=== PATIENT | female | born 1950 | race Caucasian/White ===

== ENCOUNTER 2018-01-05 09:07 | Outpatient (CLI) | payer MEDICARE, OTHER ==
--- NOTE | 2018-01-05 11:42 | MRI ---
MR OF THE LEFT FOOT WITHOUT CONTRAST: Indication: Fall with left foot pain and swelling. Comparison: None. Technique: Multiplanar, multisequence MRI images were obtained of the midfoot and forefoot. Surface m arker was placed within the region of interest along the dorsal aspect of the foot. FINDINGS: The Lisfranc ligament is intact. There is some scattered osteoarthritic change involving the midfoot, predominately along the tarsometatarsal articulation. There is mild metatarsus primus varus and barbour ux valgus deformity of the first ray. There are some nonspecific subchondral cyst like abnormalities surrounding the tarsometatarsal articu lation. No acute fracture is evident. The intrinsic foot musculature appears within normal limits. Th e flexor and extensor tendons appear within normal limits. IMPRESSION: 1. No acute osseous abnormality is evident. 2. Scattered degenerative changes of the tarsometatarsal articulation with scattered subchondral cys t like abnormalities. These are likely degenerative in nature; however, entities such as inflammatory arthritis related to rheumatoid cannot be entirely excluded. Recommend correlation with patient's ra diographs. 3. Scattered forefoot osteoarthrosis, most prominent at the great toe MTP joint where there is mild m etatarsus primus varus and hallux valgus deformity of the first ray. POS: [facility]
== END 2018-01-05 09:08 | disposition home or self-care (01) ==
LOC: TBSIIMAG 09:07
PROVIDERS: ATTEND Podiatrist
DX: S90.32XD Contusion of left foot, subsequent encounter (principal); M79.672 Pain in left foot; M19.072 Primary osteoarthritis, left ankle and foot

== ENCOUNTER 2023-05-03 22:31 | Observation (INO) | payer MEDICARE ==
[~2023-05-03 22:31] MED LIST: Iopamidol-370 76% 500 ML MDV (1 ML CHARGE) ONE
[2023-05-03 23:00] LABS: #Monocytes 0.5 thou/uL (0.11-0.59); #Neutrophils 6.2 thou/uL (1.40-6.50); %Basophils 0.2 % (0.0-1.0); %Eosinophils 0.1 % (0.0-10.0); %Lymphocytes 18.1 % (21.0-51.0); %Monocytes 5.7 % (0.0-10.0); %Neutrophils 75.7 % (42.0-75.0); Hematocrit 36.1 % (36.0-47.0); Hemoglobin 12.2 g/dL (12.0-16.0); Mean Corpuscular HGB CONC 33.8 g/dL (32.0-36.0); Mean Corpuscular Hemoglobin 31.6 pg (27.0-31.0); Mean Corpuscular Volume 93.5 fl (78.0-98.0); Mean Platelet Volume 11.1 fL (7.4-10.4); Platelet Count 196 10x3/uL (130-400); RBC Distribution Width 14.1 % (11.5-14.5); Red Blood Cell (RBC) Count 3.86 mill/uL (4.20-5.40); White Blood Cell (WBC) Count 8.2 10x3/uL (4.8-10.8)
[2023-05-03 23:28] LABS: Troponin I Less than 0.010 ng/mL (< 0.028)
[2023-05-03 23:30] LABS: ALT (SGPT) 15 U/L (8-55); AST (SGOT) 16 U/L (5-34); Albumin 4.4 g/dL (3.4-4.8); Alkaline Phosphatase 62 U/L (40-110); Anion Gap 16 mmol/L (10-20); BUN (Urea Nitrogen) 23 mg/dL (9.8-20.1); Bilirubin, Total 0.8 mg/dL (0.2-1.2); Calc. Creatinine Clearance 0 mL/min (70-130); Calcium 9.7 mg/dL (7.8-10.44); Carbon Dioxide 23 mmol/L (23-31); Chloride 103 mmol/L (98-107); Estimated GFR 39; Globulin 2.8 g/dL (2.4-3.5); Glucose 164 mg/dL (83-110); Lipase 20 U/L (8-78); Potassium 3.7 mmol/L (3.5-5.1); Protein, Total 7.2 g/dL (5.8-8.1); Sodium 138 mmol/L (136-145)
[2023-05-03] MEDS ORDERED: Nitroglycerin 2% Ointment 1 INCH/1 GM Packet ONE (23:54)
[2023-05-04] MEDS ORDERED: Ketorolac Tromethamine 30 MG/ML VIAL ONE (01:10)
[2023-05-04] MEDS ORDERED: Ondansetron PF 4 MG/2 ML Vial ONE (01:52)
[2023-05-04] MEDS ORDERED: Morphine 2 MG/ML VIAL ONE (01:52)
[2023-05-04] MEDS ORDERED: Ondansetron PF 4 MG/2 ML Vial IVP PRN (02:02)
[2023-05-04] MEDS ORDERED: Acetaminophen 325 MG TAB PO PRN (02:02)
[2023-05-04] MEDS ORDERED: Acetaminophen 650 MG Suppository PR PRN (02:02)
[2023-05-04] MEDS ORDERED: Ondansetron ODT 4 MG TAB PO PRN (02:02)
[2023-05-04] MEDS ORDERED: Sodium Chloride 0.9% 1,000 ML IV SCH (02:15)
[2023-05-04 03:27] LABS: #Monocytes 0.4 thou/uL (0.11-0.59); #Neutrophils 4.7 thou/uL (1.40-6.50); %Basophils 0.3 % (0.0-1.0); %Eosinophils 0.1 % (0.0-10.0); %Lymphocytes 26.4 % (21.0-51.0); %Monocytes 5.1 % (0.0-10.0); %Neutrophils 67.8 % (42.0-75.0); Hematocrit 32.8 % (36.0-47.0); Hemoglobin 11.1 g/dL (12.0-16.0); Mean Corpuscular HGB CONC 33.8 g/dL (32.0-36.0); Mean Corpuscular Hemoglobin 31.1 pg (27.0-31.0); Mean Corpuscular Volume 91.9 fl (78.0-98.0); Mean Platelet Volume 11.3 fL (7.4-10.4); Platelet Count 164 10x3/uL (130-400); RBC Distribution Width 13.9 % (11.5-14.5); Red Blood Cell (RBC) Count 3.57 mill/uL (4.20-5.40); White Blood Cell (WBC) Count 6.9 10x3/uL (4.8-10.8)
[2023-05-04 03:42] LABS: Hemoglobin A1c 6.1 % (4.0-6.0)
[2023-05-04 03:48] LABS: Anion Gap 15 mmol/L (10-20); BUN (Urea Nitrogen) 22 mg/dL (9.8-20.1); Calc. Creatinine Clearance 0 mL/min (70-130); Calcium 9.2 mg/dL (7.8-10.44); Carbon Dioxide 23 mmol/L (23-31); Chloride 105 mmol/L (98-107); Estimated GFR 45; Glucose 140 mg/dL (83-110); Potassium 3.8 mmol/L (3.5-5.1); Sodium 139 mmol/L (136-145)
[2023-05-04 03:53] LABS: Troponin I Less than 0.010 ng/mL (< 0.028)
[2023-05-04 04:08] VITALS: BMI 33.6
[2023-05-04] MEDS: Nitroglycerin 0.4 MG TAB (25 Tab Bottle) SL PRN ×3 (04:29→07:14)
[2023-05-04 05:51] LABS: Troponin I Less than 0.010 ng/mL (< 0.028)
[2023-05-04] MEDS ORDERED: Nitroglycerin 2% Ointment 1 INCH/1 GM Packet TOP SCH ×2 (08:00→14:00)
[2023-05-04] MEDS ORDERED: Aspirin Chewable 81 MG TAB PO SCH (09:00)
[2023-05-04 10:12] LABS: Cardiac Risk 2.5 (Less than 4.5)
[2023-05-04] MEDS ORDERED: Rosuvastatin 5 MG TAB PO SCH (10:15)
[2023-05-04] MEDS ORDERED: Levothyroxine Sodium 88 MCG TAB PO SCH (10:15)
[2023-05-04 11:46] VITALS: BP 147/62; TEMP 98.1
[2023-05-04] MEDS ORDERED: Sertraline 100 MG TAB PO SCH (21:00)
[2023-05-05] MEDS ORDERED: Levothyroxine Sodium 88 MCG TAB PO SCH (06:00)
[2023-05-05] MEDS ORDERED: Rosuvastatin 5 MG TAB PO SCH (09:00)
[2023-05-07] MEDS ORDERED: FLU VACC QS2023(65UP)/MF59C/PF 60 MCG/0.5 ML SYRINGE IM ONE (09:00)
== END 2023-05-04 13:51 | disposition home or self-care (01) ==
LOC: ERS 22:31 → 2SW 05-04 01:41
PROVIDERS: ADMIT Student in an Organized Health Care Education/Training Program; ATTEND Family Medicine
DX: R07.89 Other chest pain (principal); I44.7 Left bundle-branch block, unspecified; R59.1 Generalized enlarged lymph nodes; E11.9 Type 2 diabetes mellitus without complications; E03.9 Hypothyroidism, unspecified; E78.5 Hyperlipidemia, unspecified; F41.9 Anxiety disorder, unspecified; Z79.899 Other long term (current) drug therapy; Z88.2 Allergy status to sulfonamides; Z79.82 Long term (current) use of aspirin
CPT/HCPCS: 36415; 71045; 71275; 74174; 80048; 80053; 80061; 83036; 83690; 84443; 84484; 85025; 93005; 93306; 96374; G0378; J1885; J2272; J2405; J7050; Q9967